=== PATIENT | male | born 1995 | race Caucasian/White ===

== ENCOUNTER 2018-11-04 20:00 | Emergency (ER) | payer OTHER ==
[~2018-11-04] VITALS: Ht 185.4 cm; Wt 79.5 kg
[2018-11-04] MEDS ORDERED: IBUPROFEN 600MG TABLET PO ONE (23:15)
[2018-11-05 01:08] VITALS: BP 106/66
== END 2018-11-05 01:09 | disposition home or self-care (01) ==
LOC: ER 20:00
DX: R07.89 Other chest pain (principal)
CPT/HCPCS: 71045; 93005; 99283